=== PATIENT | male | born 1970 | race African-American/Black ===

== ENCOUNTER → 2023-09-14 17:44 | Outpatient (REF) | payer OTHER, SELFPAY | LOC: RAD 17:44 | PROVIDERS: ATTENDING PHYSICIAN Physician Assistant | DX: M25.551 Pain in right hip (principal) | CPT/HCPCS: 73502 ==

== ENCOUNTER → 2023-10-14 10:30 | Outpatient (REF) | payer OTHER, SELFPAY | LOC: MRI 10:30 | PROVIDERS: ATTENDING PHYSICIAN Physician Assistant | DX: M25.551 Pain in right hip (principal) | CPT/HCPCS: 73721 ==

== ENCOUNTER → 2023-10-30 14:31 | Outpatient (REF) | payer OTHER, SELFPAY | LOC: HWRAD 14:31 | PROVIDERS: ATTENDING PHYSICIAN Physician Assistant | DX: R31.0 Gross hematuria (principal) | CPT/HCPCS: 74176 ==